=== PATIENT | female | born 1945 | race Caucasian/White ===

== ENCOUNTER 2025-03-21 08:59 | Inpatient (IN) | payer MEDICARE, OTHER ==
[2025-03-21] VITALS (7 sets, daily range): BP systolic 118–135; BP diastolic 69–75; TEMP 97.5–98.1; O2SAT 97–100
[~2025-03-21] VITALS: Ht 157.5 cm; Wt 68.1 kg
[2025-03-21] MEDS ORDERED: FENTANYL PF 250MCG/5ML AMPUL ONE (11:19)
[2025-03-21] MEDS ORDERED: dexaMETHasone SOD PHOSPHATE 2 ML ONE (11:22)
[2025-03-21] MEDS ORDERED: LIDOCAINE 2%-EPI 1:100,000 30 ML VIAL ONE (11:22)
[2025-03-21] MEDS ORDERED: VANCOMYCIN 1 GM VIAL ONE (11:22)
[2025-03-21] MEDS ORDERED: OXYMETAZOLINE HCL NASAL SPRAY 30 ML BOTTLE NS ONE (11:22)
[2025-03-21] MEDS ORDERED: ACETAMINOPHEN 325 MG TABLET PO PRN (15:30)
[2025-03-21] MEDS ORDERED: HYDROMORPHONE 1 MG/1 ML DISP.SYRIN IV PRN (15:30)
[2025-03-21] MEDS ORDERED: ONDANSETRON HCL/PF 4 MG/2 ML VIAL IV PRN (15:30)
[2025-03-21] MEDS: IV NS 0.9% 1,000 ML IV PRN (18:25)
[2025-03-21] MEDS: VANCOMYCIN 1 GM in IV D5W 250ml IV SCH (23:09)
[2025-03-21 23:42] LABS: APPEARANCE,URINE CLEAR (CLEAR); BLOOD, URINE NEGATIVE Ery/uL (NEGATIVE); LEUKOCYTE ESTERASE ,URINE TRACE (NEGATIVE); NITRITE, URINE NEGATIVE (NEGATIVE); UGLUCOSE 3+ mg/dL (NEGATIVE)
[2025-03-22] LABS: ADD URINE CULTURE YES; SQUAMOUS EPITHELIAL CELL,UR 0-2 /HPF (None Seen)
[2025-03-22 06:00] LABS: PLATELET COUNT (AUTO) 258 K/uL (150-450); RED BLOOD CELL COUNT(AUTO) 4.49 MIL/uL (4.0-5.2); RED CELL DISTRIBUTION WIDTH 15.0 % (11.5-15.0); WHITE BLOOD COUNT (AUTO) 10.1 K/uL (4.3-11.0)
[2025-03-22 06:18] LABS: CALCIUM, SERUM 9.1 mg/dL (8.5-10.1); CREATININE 0.5 mg/dL (0.6-1.3); PHOSPHORUS 3.5 mg/dL (2.5-4.9); SODIUM SERUM 143.0 mmol/L (136-145); UREA NITROGEN, BLOOD 7.0 mg/dL (7-18)
[2025-03-22 08:00] VITALS: BP 117/70; TEMP 97.5; O2SAT 100
[2025-03-22] MEDS: PANTOPRAZOLE 40 MG TABLET.DR PO SCH (09:26)
== END 2025-03-22 13:30 | disposition home or self-care (01) | DRG 142 ==
LOC: DS 08:59 → MED 15:46
PROVIDERS: ADMIT Nurse Practitioner Family; ATTEND Nurse Practitioner Family
PROC: 0NSR04Z Reposition Maxilla with Internal Fixation Device, Open Approach (ICD-10-PCS; principal; 2025-03-21)
PROC: 0N5R0ZZ Destruction of Maxilla, Open Approach (ICD-10-PCS; 2025-03-21)
PROC: 09UR07Z Supplement Left Maxillary Sinus with Autologous Tissue Substitute, Open Approach (ICD-10-PCS; 2025-03-21)
PROC: 0NUR07Z Supplement Maxilla with Autologous Tissue Substitute, Open Approach (ICD-10-PCS; 2025-03-21)
DX: S02.40DB Maxillary fracture, left side, initial encounter for open fracture (principal); X58.XXXA Exposure to other specified factors, initial encounter; Y93.9 Activity, unspecified; Y92.009 Unspecified place in unspecified non-institutional (private) residence as the place of occurrence of the external cause; M27.2 Inflammatory conditions of jaws; D16.5 Benign neoplasm of lower jaw bone; J32.0 Chronic maxillary sinusitis
CPT/HCPCS: 36415; 80048-TC; 81001; 83735-TC; 84100-TC; 85025-TC; 87081-TC; 87086-TC; A4217; A4338; C1713; G0378; J0461; J0690; J1100; J2704; J3010; J3373; J3490; J7030; J7060